=== PATIENT | female | born 2000 | race Caucasian/White ===

== ENCOUNTER 2025-07-02 10:30 | Outpatient (CLI) | payer BC, SELFPAY ==
[2025-07-02] VITALS (25 sets, daily range): BP systolic 107–120; BP diastolic 66–75; PULSE 62–90; O2SAT 90–100
[2025-07-02 11:08] LABS: Hematocrit* 34.5 % (33.0-51.0); Hemoglobin* 12.2 gm/dL (12.0-16.0); Mean Corpuscular HGB Conc 35 gm/dL (32-36); Mean Corpuscular Hemoglobin 32 pg (26-34); Mean Corpuscular Volume 91 fL (80-100); Red Blood Count* 3.79 m/uL (4.00-5.20); White Blood Count* 9.96 K/uL (4.50-11.00)
[2025-07-02 11:14] LABS: Slide Review Reflex No
[2025-07-02 11:34] LABS: Alanine Aminotransferase* 14 U/L (4-35); Aspartate Amino Transferase* 22 U/L (12-35); Blood Urea Nitrogen* 6 mg/dL (5-24); Creatinine* 0.6 mg/dL (0.5-1.5); Estimated Glomerular Filt Rate 127 ml/min
[2025-07-02 11:36] LABS: Protein Creatinine Ratio Urine 0.59 (0-0.19)
--- NOTE | 2025-07-02 14:10 | PC.OBNST ---
NST Note NST Note Start: 07/02/25 10:42 Freq: ONCE Status: Active Protocol: Document 07/02/25 14:09 BRAD (Rec: 07/02/25 14:10 BRAD [id number]) NST Note 1 Para (# of births) 0 EDC 10/16/25 Gestational Age In 24 Weeks & 6 Days Weeks & Days High Risk Factors High Blood Pressure - Preexisting Patient Presented Other with Complaint(s) of Other Complaints serial BP monitoring, pre-eclampsia labs, and monitoring Reactive Yes Appropriate for Yes Gestational Age ALYSIA Ellison RN Date 07/02/25 Reactive Yes Appropriate for Yes Gestational Age ALYSIA Monsivais Date 07/02/25 OB NST charge Yes Complete NST Note Yes via Write Note The provider's electronic signature indicates the NST is reactive/appropriate for gestational age. *Note to provider: If an addendum is required, open the patient's chart and click on the note under the Nurse/Allied Health tab.
== END 2025-07-02 13:00 | disposition home or self-care (01) ==
LOC: OB OUT 10:33 → OB 10:34
PROVIDERS: Visit Provider Obstetrics & Gynecology
DX: O10.912 Unspecified pre-existing hypertension complicating pregnancy, second trimester (principal); Z3A.24 24 weeks gestation of pregnancy
CPT/HCPCS: 36415; 59025; 82565; 82570; 84156; 84450; 84460; 84520; 85027; G0463

== ENCOUNTER 2025-07-03 14:25 | Outpatient (CLI) | payer BC, SELFPAY | END 2025-07-03 14:26 | disposition home or self-care (01) | LOC: NFLDREF 07-09 08:41 | PROVIDERS: Visit Provider Obstetrics & Gynecology | DX: O10.912 Unspecified pre-existing hypertension complicating pregnancy, second trimester (principal) | CPT/HCPCS: 82570; 84156 ==

== ENCOUNTER 2025-07-17 07:48 | Outpatient (CLI) | payer BC, SELFPAY | END 2025-07-17 07:49 | disposition home or self-care (01) | PROVIDERS: Visit Provider Physician Assistant | DX: O26.893 Other specified pregnancy related conditions, third trimester (principal); Z67.91 Unspecified blood type, Rh negative | CPT/HCPCS: 86592; 86780; 86787; 86850 ==